=== PATIENT | female | born 1960 | race Caucasian/White ===

== ENCOUNTER 2017-02-07 13:47 | Emergency (ER) | payer MEDICARE, SELFPAY | END 2017-02-07 15:55 | disposition home or self-care (01) | PROVIDERS: Emergency Provider Nurse Practitioner Family; Visit Provider Nurse Practitioner Family | DX: S62.306A Unspecified fracture of fifth metacarpal bone, right hand, initial encounter for closed fracture (principal); W22.8XXA Striking against or struck by other objects, initial encounter; Y93.89 Activity, other specified; Y92.9 Unspecified place or not applicable; Z88.2 Allergy status to sulfonamides | CPT/HCPCS: 29130; 73130; 96372; 99203 ==

== ENCOUNTER → 2017-02-20 | Outpatient (CLI) | payer MEDICARE, SELFPAY | PROVIDERS: Family Provider Family Medicine; Visit Provider Orthopaedic Surgery | DX: S62.326D Displaced fracture of shaft of fifth metacarpal bone, right hand, subsequent encounter for fracture with routine healing (principal) | CPT/HCPCS: 73130 ==

== ENCOUNTER → 2017-02-27 09:52 | Outpatient (CLI) | payer MEDICARE, SELFPAY ==
--- NOTE | 2017-02-27 10:00 | XR_ITS ---
XR hand RT min 3V HISTORY: Follow-up fracture ITS.REASON: follow up fracture ORDERING PHYSICIAN: Rob Holm MD PATIENT AGE: 57 years COMPARISON: 02/20/2017 FINDINGS: Oblique nondisplaced fracture noted involving the distal shaft of the fifth metacarpal with minimal radial angulation of the distal fracture fragment. There is some minimal callus formation consistent with healing. Fracture line is however still visible. IMPRESSION: Healing fracture fifth metacarpal
== END ==
PROVIDERS: PCP Family Medicine; Visit Provider Orthopaedic Surgery
DX: S62.326D Displaced fracture of shaft of fifth metacarpal bone, right hand, subsequent encounter for fracture with routine healing (principal)
CPT/HCPCS: 73130